=== PATIENT | female | born 1970 | race Caucasian/White ===

== ENCOUNTER → 2020-02-12 | Outpatient (CLI) | payer OTHER | END | disposition home or self-care (01) | LOC: EDSTATUS 01-28 12:45 → RAD 13:11 | PROVIDERS: ATTEND Specialist | DX: M51.36 Other intervertebral disc degeneration, lumbar region (principal); M47.816 Spondylosis without myelopathy or radiculopathy, lumbar region | CPT/HCPCS: 72148 ==